=== PATIENT | male | born 1950 | race Caucasian/White ===

== ENCOUNTER → 2020-10-25 13:43 | Outpatient (CLI) | payer MEDICARE, SELFPAY ==
[2020-10-25] MEDS: COVID-19 VACC #1, MRNA(MOD) 100 MCG/0.5 ML VIAL IM (13:48)
== END ==
PROVIDERS: PCP Internal Medicine; Visit Provider Internal Medicine
DX: Z23 Encounter for immunization (principal)
CPT/HCPCS: 0011A; 91301

== ENCOUNTER → 2020-11-22 08:50 | Outpatient (CLI) | payer MEDICARE, SELFPAY ==
[2020-11-22] MEDS: COVID-19 VACC #2, MRNA(MOD) 100 MCG/0.5 ML VIAL IM (08:59)
== END ==
PROVIDERS: PCP Internal Medicine; Visit Provider Internal Medicine
DX: Z23 Encounter for immunization (principal)
CPT/HCPCS: 0012A; 91301

== ENCOUNTER 2021-06-21 11:47 | Emergency (ER) | payer MEDICARE, SELFPAY ==
[2021-06-21] VITALS (27 sets, daily range): BP systolic 98–130; BP diastolic 69–98; PULSE 71–164; RESP 12–25; TEMP 36.9; O2SAT 94–99; BMI 25.6
--- NOTE | 2021-06-21 12:01 | DI.RAD.S_ITS ---
PROCEDURE: XR CHEST 1V INDICATIONS: chest pain TECHNIQUE: One view of the chest was acquired. COMPARISON: [facility], CHEST 1 VIEW, 04/14/2017, 10:11. [facility], CHEST 1 VIEW, 06/01/2016, 10:05. [facility], CHEST 2 VIEW, 04/30/2017, 10:31. FINDINGS: Surgical changes and devices: None. Lungs and pleura: Lungs are clear. No pleural effusions or pneumothorax. Mediastinum: The cardiac contours are within normal limits. The aorta demonstrates calcification and tortuosity. Bones and chest wall: No suspicious bony lesions. Age-appropriate bony degenerative changes are seen. Overlying soft tissues appear unremarkable. IMPRESSION: Portable chest study within normal limits for age. Dictated by: Jerad Schwarz M.D. on 06/21/2021 at 11:20 Approved by: Jerad Schwarz M.D. on 06/21/2021 at 11:21
[2021-06-21 12:12] LABS: Add Manual Diff / Slide Review NO; Basophils Absolute Auto 100 /uL (0-100); Basophils Percent Auto 0.8 % (0-2); Eosinophils Absolute Auto 100 /uL (0-450); Eosinophils Percent Auto 0.9 % (2-4); Hemoglobin 14.2 g/dL (13.5-17.5); Lymphocytes Absolute Auto 1200 /uL (1100-4500); Lymphocytes Percent Auto 16.4 % (25-40); Mean Corpuscular HGB Conc 33.9 % (30-36); Mean Corpuscular Hemoglobin 33.1 PG (26-34); Mean Corpuscular Volume 97.7 fL (80-100); Monocytes Absolute Auto 700 /uL (0-900); Monocytes Percent Auto 10.4 % (3-14); Neutrophils Absolute Auto 5100 /uL (1500-7000); Neutrophils Percent Auto 71.5 % (50-75); Platelet Count 230 X10^3/uL (150-400); Red Cell Distribution Width 13.1 % (11.6-14.8); White Blood Cell Count 7.1 X10^3/uL (4.5-11.0)
[2021-06-21 12:14] LABS: Prothrombin Time 10.8 SECONDS (10.1-12.7)
[2021-06-21 12:17] LABS: PTT Partial Thromboplastin Tim 30 SECONDS (26.4-36.2)
[2021-06-21 12:21] LABS: Alanine Aminotransferase 30 IU/L (<50); Albumin 4.1 g/dL (3.5-5.0); Albumin Globulin Ratio 1.6 (1.0-2.8); Alkaline Phosphatase 63 U/L (38-126); Aspartate Aminotransferase 30 IU/L (17-59); BUN Creatinine Ratio 18.8 (6-22); Bilirubin Total 0.7 mg/dL (0.2-1.3); Blood Urea Nitrogen 18 mg/dL (9-20); Calcium 9.4 mg/dL (8.4-10.2); Carbon Dioxide 24 mmol/L (22-32); Chloride 108 mmol/L (98-107); Creatine Kinase 94 U/L (55-170); Estimated Glomerular Filt Rate > 60.0 mL/min (>60); Globulin 2.5 g/dL (1.7-4.1); Glucose 100 mg/dL (80-110); HEMOLYSIS < 15 (0-50); Lipase 132 U/L (23-300); Magnesium 2.2 mg/dL (1.6-2.3); Potassium 4.3 mmol/L (3.4-5.1); Sodium 140 mmol/L (137-145); Total Protein 6.6 g/dL (6.3-8.2)
--- NOTE | 2021-06-21 12:37 | ED.ARRPALP ---
HPI - Arrhythmia/Palpitations General Chief Complaint: Arrhythmia/Palpitations Stated Complaint: afib Time Seen by Provider: 06/21/21 12:06 Source: patient Mode of arrival: Ambulatory Limitations: no limitations History of Present Illness HPI narrative: 70-year-old gentleman with a history of paroxysmal atrial fibrillation currently presents not on anticoagulation beyond aspirin because his paroxysmal atrial fibrillation is typically a couple of years in between episodes. He states that this current episode began 3:00 a.m. early the morning of 06/19. He believes it is because he did not take his usual magnesium for approximately 5 days due to traveling. He has successfully been cardioverted at least 4 times. Currently is feeling a faster rate but no cough, palpitations, chest pain, orthopnea or dyspnea. Related Data Home Medications Medication Instructions Recorded Confirmed aspirin 81 mg tablet,delayed 81 mg PO QDAY #0 04/14/17 release pravastatin 20 mg tablet 20 mg PO Q DAY #0 04/14/17 (Pravachol) Previous Rx's Medication Instructions Recorded rivaroxaban 20 mg tablet (Xarelto) 20 mg PO QDAY 28 Days #0 tab 04/14/17 apixaban 5 mg tablet (Eliquis) 5 mg PO BID #60 tab 06/21/21 Allergies Allergy/AdvReac Type Severity Reaction Status Date / Time ampicillin [AMPICILLIN] Allergy Unknown Verified 06/21/21 12:02 cephalexin [From KEFLEX] Allergy Unknown Verified 06/21/21 12:02 clindamycin [CLINDAMYCIN] Allergy Unknown Verified 06/21/21 12:02 sulfamethoxazole Allergy Unknown Verified 06/21/21 12:02 [From BACTRIM] trimethoprim [From BACTRIM] Allergy Unknown Verified 06/21/21 12:02 Review of Systems Review of Systems Narrative: Remainder of complete review of systems is otherwise unremarkable except for that included in the HPI. Patient History Medical History (Updated 06/21/21 @ 15:14 by Jessica Voss MD) Paroxysmal atrial fibrillation Social History (System 10/26/20 @ 09:08 by Sarahi Torrez) Smoking Status: Unknown if ever smoked Smoking Status: Unknown if ever smoked alcohol intake frequency: holidays/special occasions only Substance Use Type: does not use Exam Narrative Exam Narrative: General: Healthy appearing, in no acute distress. Able to give a complete and coherent history. Well-nourished well-developed HEENT: Moist mucous membranes, normal sclera with reactive pupils, Neck: No JVD, supple Respiratory: Lungs are clear to auscultation, no wheezing no rales no rhonchi. Full and symmetrical air movement Cardiac: Rapid and irregular, no murmurs no bruits Abdomen: Soft, nontender, good bowel tones, no flank pain Skin: Warm and dry, no rashes Neurologic: Grossly neurologically intact with no obvious asymmetries or abnormalities Extremities: No trauma, well perfused, no lower extremity edema Psych: Cooperative, appropriate insight and affect Initial Vital Signs Initial Vital Signs: Vital Signs Pulse Rate 153 H 06/21/21 11:52 Respiratory Rate 25 H 06/21/21 11:52 Pulse Oximetry 99 06/21/21 11:52 Procedures Cardioversion Time of Cardioversion: 15:08 Consent Signed: Yes Indication: Atrial fibrillation with rapid ventricular response Stability: Stable Number of attempts (shocks): 1 Joules used: 100 Cardiac rhythm post-cardioversion: Sinus rhythm Additional Comments: With prior cardioversion notes from a the 100 mg of propofol was used. I believe 80 would be absolutely appropriate with the next cardioversion if required. Procedural Sedation Time of procedure: 15:09 Consent signed: Yes Time out performed: Yes Indication: cardioversion ASA Class: II Time of Last PO Intake: 21:00 Preparation: bias binding folder applied, pulse oximeter, capnometry used, supplemental O2 applied, suction/airway equipment at bedside and IV secured IV Propofol dose (mg): 100 Intraservice time/total sedation time (min): 12 Complications: none Interventions: Airway repositioned Additional Comments: Patient is 6 ft 10 in tall. Prior propofol required was 100 mg. I believe 80 mg in a single bolus would be very appropriate for the next cardioversion if required. Course Orders Ordered: ED Orders 06/21/21 11:55 Complete Blood Count AUTO DIFF Stat Comprehensive Metabolic Panel Stat Lipase Stat Magnesium Stat Partial Thromboplastin Time Stat Prothrombin Time INR Stat Troponin & CK Cardiac Panel Stat 06/21/21 12:01 XR chest 1V Stat EKG-12 Lead Stat 06/21/21 12:19 COVID19 - ADMIT ([employer] swab/PCR) Stat Discontinued Medications Apixaban (Apixaban 5 Mg Tablet) 5 mg PO NOW ONE Stop: 06/21/21 12:46 Last Admin: 06/21/21 13:24 Dose: 5 mg Documented by: JALEESA Propofol (Propofol 200 Mg/20 Ml Vial) 200 mg IV NOW ONE Stop: 06/21/21 12:46 Vital Signs Vital signs: Vital Signs - 8 hr 06/21/21 11:52 06/21/21 11:53 06/21/21 11:55 Temperature 98.4 F Pulse Rate 153 H 164 H 157 H Respiratory Rate 25 H 15 16 Blood Pressure 121/91 H 121/93 H Pulse Oximetry 99 98 99 06/21/21 12:00 06/21/21 12:30 06/21/21 13:00 Temperature Pulse Rate 162 H 155 H 155 H Respiratory Rate 14 23 21 Blood Pressure 130/94 H Pulse Oximetry 99 96 95 06/21/21 13:30 06/21/21 13:31 06/21/21 13:35 Temperature Pulse Rate 152 H 153 H 150 H Respiratory Rate Blood Pressure 103/78 111/85 Pulse Oximetry 98 99 99 06/21/21 13:40 06/21/21 13:45 06/21/21 13:51 Temperature Pulse Rate 152 H 151 H 146 H Respiratory Rate Blood Pressure 119/76 108/69 126/98 H Pulse Oximetry 99 97 98 06/21/21 13:55 06/21/21 14:00 06/21/21 14:05 Temperature Pulse Rate 152 H 154 H 155 H Respiratory Rate Blood Pressure 108/86 117/69 Pulse Oximetry 98 99 98 06/21/21 14:13 06/21/21 14:15 06/21/21 14:20 Temperature Pulse Rate 155 H 156 H 153 H Respiratory Rate Blood Pressure 108/78 98/72 101/82 Pulse Oximetry 99 99 99 06/21/21 14:25 06/21/21 14:30 06/21/21 14:40 Temperature Pulse Rate 153 H 154 H 158 H Respiratory Rate 22 Blood Pressure 104/84 110/82 Pulse Oximetry 98 95 98 06/21/21 14:55 06/21/21 15:00 Temperature Pulse Rate 73 73 Respiratory Rate 18 17 Blood Pressure 112/71 108/76 Pulse Oximetry 94 97 MDM - Arrhythmia/Palpitations Lab Data Result diagrams: 06/21/21 11:55 06/21/21 11:55 Labs: Lab Results 06/21/21 06/21/21 06/21/21 Range/Units 11:55 11:55 11:55 WBC 7.1 (4.5-11.0) X10^3/uL RBC 4.30 L (4.5-5.9) X10^6/uL Hgb 14.2 (13.5-17.5) g/dL Hct 42.0 (41-53) % MCV 97.7 (80-100) fL MCH 33.1 (26-34) PG MCHC 33.9 (30-36) % RDW 13.1 (11.6-14.8) % Plt Count 230 (150-400) X10^3/uL Neut % (Auto) 71.5 (50-75) % Lymph % (Auto) 16.4 L (25-40) % [place] % (Auto) 10.4 (3-14) % Eos % (Auto) 0.9 L (2-4) % Baso % (Auto) 0.8 (0-2) % Neut # (Auto) 5100 (5453-7622) /uL Lymph # (Auto) 1200 (4053-5511) /uL [place] # (Auto) 700 (0-900) /uL Eos # (Auto) 100 (0-450) /uL Baso # (Auto) 100 (0-100) /uL PT 10.8 (10.1-12.7) SECONDS INR 1.0 (0.9-1.3) APTT 30 (26.4-36.2) SECONDS Sodium 140 (137-145) mmol/L Potassium 4.3 (3.4-5.1) mmol/L Chloride 108 H (98-107) mmol/L Carbon Dioxide 24 (22-32) mmol/L BUN 18 (9-20) mg/dL Creatinine 0.96 (0.66-1.25) mg/dL Estimated GFR > 60.0 (>60) mL/min BUN/Creatinine Ratio 18.8 (6-22) Glucose 100 (80-110) mg/dL Calcium 9.4 (8.4-10.2) mg/dL Magnesium 2.2 (1.6-2.3) mg/dL Total Bilirubin 0.7 (0.2-1.3) mg/dL AST 30 (17-59) IU/L ALT 30 (<50) IU/L Alkaline Phosphatase 63 (38-126) U/L Total Creatine Kinase 94 (55-170) U/L CK-MB (CK-2) TNP CK-MB (CK-2) Rel Index TNP Troponin I < 0.012 (0.01-0.034) ng/mL Total Protein 6.6 (6.3-8.2) g/dL Albumin 4.1 (3.5-5.0) g/dL Globulin 2.5 (1.7-4.1) g/dL Albumin/Globulin Ratio 1.6 (1.0-2.8) Lipase 132 (23-300) U/L SARS-CoV-2 (PCR) (Negative) 06/21/21 Range/Units 12:19 WBC (4.5-11.0) X10^3/uL RBC (4.5-5.9) X10^6/uL Hgb (13.5-17.5) g/dL Hct (41-53) % MCV (80-100) fL MCH (26-34) PG MCHC (30-36) % RDW (11.6-14.8) % Plt Count (150-400) X10^3/uL Neut % (Auto) (50-75) % Lymph % (Auto) (25-40) % [place] % (Auto) (3-14) % Eos % (Auto) (2-4) % Baso % (Auto) (0-2) % Neut # (Auto) (2738-2125) /uL Lymph # (Auto) (4317-7435) /uL [place] # (Auto) (0-900) /uL Eos # (Auto) (0-450) /uL Baso # (Auto) (0-100) /uL PT (10.1-12.7) SECONDS INR (0.9-1.3) APTT (26.4-36.2) SECONDS Sodium (137-145) mmol/L Potassium (3.4-5.1) mmol/L Chloride (98-107) mmol/L Carbon Dioxide (22-32) mmol/L BUN (9-20) mg/dL Creatinine (0.66-1.25) mg/dL Estimated GFR (>60) mL/min BUN/Creatinine Ratio (6-22) Glucose (80-110) mg/dL Calcium (8.4-10.2) mg/dL Magnesium (1.6-2.3) mg/dL Total Bilirubin (0.2-1.3) mg/dL AST (17-59) IU/L ALT (<50) IU/L Alkaline Phosphatase (38-126) U/L Total Creatine Kinase (55-170) U/L CK-MB (CK-2) CK-MB (CK-2) Rel Index Troponin I (0.01-0.034) ng/mL Total Protein (6.3-8.2) g/dL Albumin (3.5-5.0) g/dL Globulin (1.7-4.1) g/dL Albumin/Globulin Ratio (1.0-2.8) Lipase (23-300) U/L SARS-CoV-2 (PCR) Negative (Negative) Imaging Data Chest x-ray: Radiologist's Impresson: FINDINGS: Surgical changes and devices: None. Lungs and pleura: Lungs are clear. No pleural effusions or pneumothorax. Mediastinum: The cardiac contours are within normal limits. The aorta demonstrates calcification and tortuosity. Bones and chest wall: No suspicious bony lesions. Age-appropriate bony degenerative changes are seen. Overlying soft tissues appear unremarkable. IMPRESSION: Portable chest study within normal limits for age. Dictated by: Jerad Schwarz M.D. on 06/21/2021 at 11:20 ECG Data Interpretation: Atrial fibrillation at a rate of [address] T wave abnormality MDM Narrative Medical decision making narrative: 60-year-old gentleman currently on aspirin with paroxysmal atrial fibrillation last episode in 2019. Presents with 36 hours of atrial fibrillation in the 150 range. Otherwise asymptomatic. There is no evidence of infection, acute coronary syndrome, pulmonary embolism, aortic dissection or alternate diagnosis to explain his acute onset paroxysmal atrial fibrillation. He is given 5 mg of Eliquis. Informed consent is obtained. Labs are reviewed and are unremarkable. He is shocked with 100 joules, synchronized electricity and converts nicely to sinus rhythm. After awaking from his sedation he is doing well and ready for discharge home He is in sinus rhythm at a rate of 68. Will give him a prescription for Eliquis 5 mg b.i.d. and asked him to follow-up with his aerotriangulation specialist at [facility]. Discharge Plan Departure Patient Disposition: Home Clinical Impression: Atrial fibrillation with rapid ventricular response Instructions: DI for Atrial Fibrillation, Moderate Sedation Activity Restrictions/Additional Instructions: Thank you for coming in today in thank you for tolerating the long wait. You were given propofol and cardioverted with 100 joules of electricity and converted from atrial fibrillation with rapid ventricular response to sinus rhythm at a rate of 68. Your post cardioversion EKG is beautiful. I gave you a dose of Eliquis prior to the procedure and I am going to request that you feel the Eliquis prescription. Typically we have people continue for at least 3 months post cardioversion. Please schedule follow-up appointment with her aerotriangulation specialist to discuss the timing of the Eliquis and the recurrent episode of atrial fibrillation. If you have any further episodes please feel free to return to the ER. 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 It was a pleasure treating you today Prescriptions: New Eliquis 5 mg tablet 5 mg PO BID Qty: 60 RF: 3 No Action aspirin 81 MG tablet,delayed release (DR/EC) 81 mg PO QDAY Qty: 0 RF: 0 pravastatin [Pravachol] 20 MG tablet 20 mg PO Q DAY Qty: 0 RF: 0 rivaroxaban [Xarelto] 20 MG tablet 20 mg PO QDAY 28 Days Qty: 0 RF: 0 Referrals: Santino Mariee MD [Primary Care Provider] -
[2021-06-21 13:23] LABS: COVID19 - ADMIT (NP swab/PCR) Negative (Negative)
[2021-06-21] MEDS: APIXABAN 5 MG TABLET PO (13:24)
[2021-06-21 13:51] LABS: Troponin I < 0.012 ng/mL (0.01-0.034)
[2021-06-21] MEDS: propofoL 200 MG/20 ML VIAL IV (14:50)
== END 2021-06-21 15:35 | disposition home or self-care (01) ==
PROVIDERS: Emergency Provider Emergency Medicine; PCP Internal Medicine
DX: I48.20 Chronic atrial fibrillation, unspecified (principal); Z79.01 Long term (current) use of anticoagulants; Z20.822 Contact with and (suspected) exposure to COVID-19
CPT/HCPCS: 36415; 71045; 80053; 82550; 83690; 83735; 84484; 85025; 85610; 85730; 87635; 92960; 93005; 93010; 99152; 99285; C9803; J2704

== ENCOUNTER → 2022-03-25 11:48 | Outpatient (CLI) | payer MEDICARE, SELFPAY ==
[2022-03-25 12:58] LABS: Hemoglobin 13.3 g/dL (13.5-17.5); Mean Corpuscular Hemoglobin 33.5 PG (26-34); Mean Corpuscular Volume 95.7 fL (80-100); Platelet Count 205 X10^3/uL (150-400); Red Blood Cell Count 3.97 X10^6/uL (4.5-5.9); Red Cell Distribution Width 13.6 % (11.6-14.8); White Blood Cell Count 3.8 X10^3/uL (4.5-11.0)
[2022-03-25 13:31] LABS: Alanine Aminotransferase 28 IU/L (<50); Albumin 4.2 g/dL (3.5-5.0); Albumin Globulin Ratio 1.9 (1.0-2.8); Alkaline Phosphatase 51 U/L (38-126); Aspartate Aminotransferase 34 IU/L (17-59); BUN Creatinine Ratio 23.1 (6-22); Bilirubin Total 0.6 mg/dL (0.2-1.3); Blood Urea Nitrogen 21 mg/dL (9-20); Calcium 8.7 mg/dL (8.4-10.2); Carbon Dioxide 23 mmol/L (22-32); Chloride 110 mmol/L (98-107); Cholesterol 175 mg/dL (140-199); Estimated Glomerular Filt Rate > 60 mL/min (>60); Globulin 2.2 g/dL (1.7-4.1); Glucose 104 mg/dL (80-110); HDL Cholesterol 61 mg/dL (40-60); HEMOLYSIS < 15 (0-50); LDL Cholesterol Calculated 98 mg/dL (<100); Potassium 4.2 mmol/L (3.4-5.1); Sodium 140 mmol/L (137-145); Total Protein 6.4 g/dL (6.3-8.2); Triglycerides 78 mg/dL (35-150)
[2022-03-25 13:54] LABS: Prostate Specific Antigen 1.56 ng/mL (0.10-4.00)
[2022-03-25 14:13] LABS: Vitamin B12 707 pg/mL (239-931)
== END ==
PROVIDERS: PCP Internal Medicine; Referring Provider Internal Medicine; Visit Provider Internal Medicine
DX: E78.2 Mixed hyperlipidemia (principal); N13.8 Other obstructive and reflux uropathy; I10 Essential (primary) hypertension; I48.0 Paroxysmal atrial fibrillation; N40.1 Benign prostatic hyperplasia with lower urinary tract symptoms; E53.8 Deficiency of other specified B group vitamins
CPT/HCPCS: 36415; 80053; 80061; 82607; 84153; 84443; 85027

== ENCOUNTER → 2022-10-11 09:45 | Outpatient (CLI) | payer MEDICARE, SELFPAY ==
[2022-10-11 10:15] LABS: Add Manual Diff / Slide Review NO; Basophils Absolute Auto 0 /uL (0-100); Eosinophils Absolute Auto 100 /uL (0-450); Eosinophils Percent Auto 3.8 % (2-4); Hematocrit 39.2 % (41-53); Hemoglobin 13.8 g/dL (13.5-17.5); Lymphocytes Absolute Auto 800 /uL (1100-4500); Mean Corpuscular HGB Conc 35.3 % (30-36); Mean Corpuscular Hemoglobin 34.4 PG (26-34); Mean Corpuscular Volume 97.4 fL (80-100); Monocytes Absolute Auto 500 /uL (0-900); Monocytes Percent Auto 12.8 % (3-14); Neutrophils Absolute Auto 2400 /uL (1500-7000); Neutrophils Percent Auto 62.4 % (50-75); Platelet Count 190 X10^3/uL (150-400); Red Blood Cell Count 4.02 X10^6/uL (4.5-5.9); Red Cell Distribution Width 13.3 % (11.6-14.8); White Blood Cell Count 3.9 X10^3/uL (4.5-11.0)
[2022-10-11 10:34] LABS: HEMOLYSIS < 15 (0-50); Iron 184 ug/dL (49-181)
[2022-10-11 10:46] LABS: Percent Iron Saturation 47 % (20-50); Total Iron Binding Capacity 392 ug/dL (261-462); Transferrin 292 mg/dL (206-381)
[2022-10-11 10:57] LABS: Cholesterol 162 mg/dL (140-199); HDL Cholesterol 66 mg/dL (40-60); LDL Cholesterol Calculated 84 mg/dL (<100); Triglycerides 59 mg/dL (35-150)
[2022-10-11 11:24] LABS: Ferritin 21 ng/mL (18-464)
== END ==
PROVIDERS: PCP Internal Medicine; Referring Provider Internal Medicine; Visit Provider Internal Medicine
DX: D64.9 Anemia, unspecified (principal)
CPT/HCPCS: 36415; 80061; 82728; 83540; 83550; 85025

== ENCOUNTER → 2022-10-24 13:29 | Outpatient (CLI) | payer MEDICARE, SELFPAY ==
[2022-10-24 14:27] LABS: BUN Creatinine Ratio 23.3 (6-22); Blood Urea Nitrogen 21 mg/dL (9-20); Calcium 9.1 mg/dL (8.4-10.2); Carbon Dioxide 28 mmol/L (22-32); Chloride 106 mmol/L (98-107); Estimated Glomerular Filt Rate > 60 mL/min (>60); Glucose 72 mg/dL (80-110); HEMOLYSIS < 15 (0-50); Potassium 4.8 mmol/L (3.4-5.1); Sodium 140 mmol/L (137-145)
== END ==
PROVIDERS: PCP Internal Medicine; Referring Provider Internal Medicine; Visit Provider Internal Medicine
DX: R79.89 Other specified abnormal findings of blood chemistry (principal)
CPT/HCPCS: 36415; 80048

== ENCOUNTER → 2023-01-22 08:42 | Outpatient (CLI) | payer MEDICARE, SELFPAY ==
[2023-01-22 09:38] LABS: Hematocrit 41.1 % (41-53); Hemoglobin 14.3 g/dL (13.5-17.5); Mean Corpuscular HGB Conc 34.8 % (30-36); Mean Corpuscular Hemoglobin 33.8 PG (26-34); Platelet Count 197 X10^3/uL (150-400); Red Blood Cell Count 4.23 X10^6/uL (4.5-5.9); Red Cell Distribution Width 13.1 % (11.6-14.8); White Blood Cell Count 4.2 X10^3/uL (4.5-11.0)
[2023-01-22 10:00] LABS: HEMOLYSIS < 15 (0-50); Iron 124 ug/dL (49-181)
[2023-01-22 10:04] LABS: Blood Urea Nitrogen 24 mg/dL (9-20); Calcium 9.3 mg/dL (8.4-10.2); Carbon Dioxide 28 mmol/L (22-32); Chloride 105 mmol/L (98-107); Estimated Glomerular Filt Rate > 60 mL/min (>60); Glucose 97 mg/dL (80-110); HEMOLYSIS < 15 (0-50); Potassium 4.4 mmol/L (3.4-5.1); Sodium 138 mmol/L (137-145)
[2023-01-22 10:15] LABS: Percent Iron Saturation 30 % (20-50); Total Iron Binding Capacity 412 ug/dL (261-462); Transferrin 297 mg/dL (206-381)
[2023-01-22 10:37] LABS: Ferritin 20 ng/mL (18-464)
== END ==
PROVIDERS: PCP Internal Medicine; Referring Provider Internal Medicine; Visit Provider Internal Medicine
DX: D64.9 Anemia, unspecified (principal); I48.0 Paroxysmal atrial fibrillation
CPT/HCPCS: 36415; 80048; 82728; 83540; 83550; 85027

== ENCOUNTER → 2024-07-29 16:07 | Outpatient (CLI) | payer MEDICARE, SELFPAY ==
[2024-07-29 16:57] LABS: Hematocrit 36.2 % (41-53); Hemoglobin 12.3 g/dL (13.5-17.5); Mean Corpuscular HGB Conc 33.9 % (30-36); Mean Corpuscular Hemoglobin 32.1 PG (26-34); Mean Corpuscular Volume 94.8 fL (80-100); Platelet Count 152 X10^3/uL (150-400); Red Blood Cell Count 3.82 X10^6/uL (4.5-5.9); Red Cell Distribution Width 14.2 % (11.6-14.8); White Blood Cell Count 4.6 X10^3/uL (4.5-11.0)
[2024-07-29 17:11] LABS: Alanine Aminotransferase 27 IU/L (<50); Albumin 4.2 g/dL (3.5-5.0); Albumin Globulin Ratio 1.8 (1.0-2.8); Alkaline Phosphatase 54 U/L (38-126); Aspartate Aminotransferase 33 IU/L (17-59); BUN Creatinine Ratio 22.3 (6-22); Bilirubin Total 0.4 mg/dL (0.2-1.3); Blood Urea Nitrogen 21 mg/dL (9-20); Calcium 9.2 mg/dL (8.4-10.2); Carbon Dioxide 27 mmol/L (22-32); Chloride 108 mmol/L (98-107); Cholesterol 190 mg/dL (140-199); Estimated Glomerular Filt Rate > 60 mL/min (>60); Globulin 2.3 g/dL (1.7-4.1); Glucose 97 mg/dL (80-110); HDL Cholesterol 59 mg/dL (40-60); HEMOLYSIS < 15 (0-50); LDL Cholesterol Calculated 111 mg/dL (<100); Potassium 4.1 mmol/L (3.4-5.1); Sodium 139 mmol/L (137-145); Total Protein 6.5 g/dL (6.3-8.2); Triglycerides 98 mg/dL (35-150)
[2024-07-29 17:41] LABS: Prostate Specific Antigen 1.71 ng/mL (0.10-4.00)
[2024-07-29 18:00] LABS: Vitamin B12 672 pg/mL (239-931)
== END ==
PROVIDERS: PCP Internal Medicine; Referring Provider Internal Medicine; Visit Provider Internal Medicine
DX: I48.0 Paroxysmal atrial fibrillation (principal); E78.2 Mixed hyperlipidemia; N40.1 Benign prostatic hyperplasia with lower urinary tract symptoms; N13.8 Other obstructive and reflux uropathy; E53.8 Deficiency of other specified B group vitamins; D68.59 Other primary thrombophilia; G62.9 Polyneuropathy, unspecified; M15.9 Polyosteoarthritis, unspecified; Z80.42 Family history of malignant neoplasm of prostate; R13.12 Dysphagia, oropharyngeal phase; Z86.0100 Personal history of colon polyps, unspecified
CPT/HCPCS: 36415; 80053; 80061; 82607; 84153; 85027

== ENCOUNTER 2024-09-03 10:45 | Day surgery (SDC) | payer MEDICARE, SELFPAY ==
[2024-09-03 11:30] VITALS: BP 115/71; PULSE 69; RESP 12; TEMP 36.6; O2SAT 95
--- NOTE | 2024-09-03 12:40 | PM.PREOP ---
Pre-operative Note Interval Note History & Physical reviewed/Exam performed by Physician: Yes Changes to H&P: No
--- NOTE | 2024-09-03 12:41 | PM.OP.EC ---
Operative Date/Time/Diagnoses Date of procedure: 09/03/24 Time of procedure: 12:41 Pre-op diagnosis: Esophageal dysphagia History of colonic polyps Procedure & Clinicians Study performed: Esophagogastroduodenoscopy and colonoscopy Same procedure as scheduled: Yes Indications: Personal history of colonic polyps Esophageal dysphagia Surgeon: Chito Lipscomb Procedure Notes Procedure in detail: The history and physical was performed/updated and the patient is ASA class is 2. The procedure was discussed in detail with the patient. Potential risks complications including infection, bleeding, missed diagnosis, perforation, need for surgery, and were explained. Their questions were answered and informed consent was obtained. Patient placed in left lateral decubitus position. Time out was performed. Procedural sedation was administered by Anesthesia. A bite block was placed. the scope was inserted into the mouth and advanced through the esophagus and into the stomach. the pylorus was intubated and the duodenum was examined to the 2nd portion.. The scope was retroflexed within the stomach. The stomach was then decompressed and scope pulled back to the GE junction. The scope was then removed Examination began with a thorough inspection of the perianal area there was no evidence of fissures, fistulae, external hemorrhoids or cutaneous malignancy. The colonoscopy scope was then placed into the anal canal and was advanced to the cecum, which was identified by the ileocecal valve, the appendiceal orifice and the confluence of the taenia. The scope was then slowly withdrawn examining colon thoroughly in all directions, irrigating it of any residual stool. FINDINGS Distal esophageal stricture. Balloon Dilated to 20 mm under direct visualization No colonic polyps The patient tolerated the procedure well. They will be discharged once criteria are met. The prep was of good/excellent quality. The withdrawl time was 9 minutes. Specimen(s): none sent Impression: Esophageal stricture Post-procedure Plan for aftercare: No need for further colonoscopy Disposition: same day surgery
[2024-09-03 13:18] VITALS: BP 98/66; PULSE 61; RESP 15; TEMP 36.2; O2SAT 91
[2024-09-03 13:23] VITALS: BP 102/66; PULSE 55; RESP 13; O2SAT 95
[2024-09-03 13:28] VITALS: BP 103/77; PULSE 66; RESP 14; TEMP 36.1; O2SAT 96
[2024-09-03 13:32] VITALS: BP 116/79; PULSE 59; RESP 15; TEMP 36.6; O2SAT 98
== END 2024-09-03 14:02 | disposition home or self-care (01) ==
PROVIDERS: PCP Internal Medicine; Referring Provider Surgery; Visit Provider Surgery
PROC: 0DJ08ZZ Inspection of Upper Intestinal Tract, Via Natural or Artificial Opening Endoscopic (ICD-10-PCS; CPT 43235; principal; 2024-09-03 12:30)
PROC: 0DJD8ZZ Inspection of Lower Intestinal Tract, Via Natural or Artificial Opening Endoscopic (ICD-10-PCS; CPT 45378; 2024-09-03 12:30)
DX: Z12.11 Encounter for screening for malignant neoplasm of colon (principal); Z86.0100 Personal history of colon polyps, unspecified; R13.10 Dysphagia, unspecified; K22.2 Esophageal obstruction
CPT/HCPCS: 43249; G0105; J2704

== ENCOUNTER → 2024-09-14 09:23 | Outpatient (CLI) | payer MEDICARE, SELFPAY ==
[2024-09-14 10:17] LABS: Add Manual Diff / Slide Review NO; Basophils Absolute Auto 0 /uL (0-100); Eosinophils Absolute Auto 100 /uL (0-450); Eosinophils Percent Auto 2.9 % (2-4); Hematocrit 36.5 % (41-53); Hemoglobin 12.4 g/dL (13.5-17.5); Lymphocytes Absolute Auto 800 /uL (1100-4500); Lymphocytes Percent Auto 20.7 % (25-40); Mean Corpuscular HGB Conc 33.8 % (30-36); Mean Corpuscular Hemoglobin 31.9 PG (26-34); Mean Corpuscular Volume 94.4 fL (80-100); Monocytes Absolute Auto 500 /uL (0-900); Monocytes Percent Auto 12.9 % (3-14); Neutrophils Absolute Auto 2300 /uL (1500-7000); Neutrophils Percent Auto 62.5 % (50-75); Platelet Count 216 X10^3/uL (150-400); Red Blood Cell Count 3.87 X10^6/uL (4.5-5.9); Red Cell Distribution Width 14.3 % (11.6-14.8); White Blood Cell Count 3.6 X10^3/uL (4.5-11.0)
[2024-09-14 10:32] LABS: HEMOLYSIS < 15 (0-50); Iron 77 ug/dL (49-181)
[2024-09-14 10:42] LABS: Percent Iron Saturation 21 % (20-50); Total Iron Binding Capacity 359 ug/dL (261-462); Transferrin 309 mg/dL (206-381)
[2024-09-14 11:08] LABS: Ferritin 20 ng/mL (18-464)
== END ==
PROVIDERS: PCP Internal Medicine; Referring Provider Internal Medicine; Visit Provider Internal Medicine
DX: D64.9 Anemia, unspecified (principal)
CPT/HCPCS: 36415; 82728; 83540; 83550; 85025

== ENCOUNTER 2025-01-04 11:29 | Emergency (ER) | payer MEDICARE, SELFPAY ==
[2025-01-04] VITALS (8 sets, daily range): BP systolic 114–122; BP diastolic 73–79; PULSE 46–109; RESP 11–27; TEMP 36.6; O2SAT 95–99; BMI 24.0
--- NOTE | 2025-01-04 11:44 | DI.RAD.S_ITS ---
PROCEDURE: XR CHEST 1V INDICATIONS: chest pain TECHNIQUE: One view of the chest was acquired. COMPARISON: [facility], CR, XR CHEST 1V, 06/21/2021, 12:03. FINDINGS: Surgical changes and devices: None. Lungs and pleura: Lungs are clear. No pleural effusions or pneumothorax. Mediastinum: Mediastinal contours appear normal. Heart size is normal. Moderate hiatal hernia, not visible on the previous study. Bones and chest wall: No suspicious bony lesions. Overlying soft tissues appear unremarkable. IMPRESSION: Moderate hiatal hernia. No acute pulmonary process. Dictated by: Cory Martinez M.D. on 01/04/2025 at 12:40 Approved by: Cory Martinez M.D. on 01/04/2025 at 12:40
--- NOTE | 2025-01-04 11:48 | EKG_ITS ---
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
[2025-01-04 12:11] LABS: Add Manual Diff / Slide Review NO; Basophils Absolute Auto 100 /uL (0-100); Eosinophils Absolute Auto 100 /uL (0-450); Eosinophils Percent Auto 1.1 % (2-4); Hemoglobin 14.1 g/dL (13.5-17.5); Lymphocytes Absolute Auto 800 /uL (1100-4500); Lymphocytes Percent Auto 14.2 % (25-40); Mean Corpuscular HGB Conc 34.3 % (30-36); Mean Corpuscular Hemoglobin 33.7 PG (26-34); Monocytes Absolute Auto 500 /uL (0-900); Monocytes Percent Auto 8.8 % (3-14); Neutrophils Absolute Auto 4000 /uL (1500-7000); Neutrophils Percent Auto 74.9 % (50-75); Platelet Count 209 X10^3/uL (150-400); Red Blood Cell Count 4.19 X10^6/uL (4.5-5.9); Red Cell Distribution Width 13.4 % (11.6-14.8); White Blood Cell Count 5.4 X10^3/uL (4.5-11.0)
[2025-01-04 12:16] LABS: INR 1.1 (0.9-1.3); Prothrombin Time 12.2 SECONDS (9.4-12.5)
[2025-01-04 12:19] LABS: PTT Partial Thromboplastin Tim 34 SECONDS (25.1-36.5)
[2025-01-04 12:20] LABS: Alanine Aminotransferase 28 IU/L (<50); Albumin 4.3 g/dL (3.5-5.0); Alkaline Phosphatase 58 U/L (38-126); Aspartate Aminotransferase 33 IU/L (17-59); Bilirubin Total 0.9 mg/dL (0.2-1.3); Blood Urea Nitrogen 22 mg/dL (9-20); Calcium 9.4 mg/dL (8.4-10.2); Carbon Dioxide 19 mmol/L (22-32); Chloride 110 mmol/L (98-107); Creatine Kinase 89 U/L (55-170); Estimated Glomerular Filt Rate > 60 mL/min (>60); Globulin 2.2 g/dL (1.7-4.1); Glucose 100 mg/dL (80-110); HEMOLYSIS < 15 (0-50); Lipase 112 U/L (23-300); Magnesium 2.1 mg/dL (1.6-2.3); Potassium 4.1 mmol/L (3.4-5.1); Sodium 138 mmol/L (137-145); Total Protein 6.5 g/dL (6.3-8.2)
[2025-01-04 12:32] LABS: NT-proBNP (BNP-Adult 18+) 1670 pg/mL (<125); Troponin I < 0.012 ng/mL (0.01-0.034)
--- NOTE | 2025-01-04 12:32 | ED.ARRPALP ---
HPI - Arrhythmia/Palpitations General Chief Complaint: Arrhythmia/Palpitations Stated Complaint: SOB , Light headed ,Low blood pressure Time Seen by Provider: 01/04/25 12:32 History of Present Illness HPI narrative: 74-year-old male with history of atrial fibrillation first diagnosed 15 years ago, in the past had been on Xarelto anticoagulation, had cardiac ablation procedure at [facility] May 2023, eventually stopped taking Xarelto, was felt to be out of atrial fibrillation, 3 months ago his apple watch indicated that he might have been in atrial fibrillation briefly but was not symptomatic at that time, not taking anticoagulation, for the last 4 days his Apple watch has indicated that he has been in atrial fibrillation, he restarted Xarelto oral anticoagulation 4 days ago from an old supply of his, today felt like he had atrial fibrillation with faster heart rate sensation, and some generalized weakness. He presented to his primary care provider, in clinic was found to have low blood pressure in context of AFib with fast ventricular response rate, referred for further evaluation. He currently feels better. Has been on metoprolol in the past. Related Data Previous Rx's Medication Instructions Recorded rivaroxaban 20 mg tablet (Xarelto) 20 mg PO DAILY #90 tabs 07/29/24 rosuvastatin 10 mg tablet 10 mg PO DAILY #90 tabs 07/29/24 Allergies Allergy/AdvReac Type Severity Reaction Status Date / Time ampicillin [AMPICILLIN] Allergy Unknown Verified 01/04/25 10:50 cephalexin [From KEFLEX] Allergy Unknown Verified 01/04/25 10:50 clindamycin [CLINDAMYCIN] Allergy Unknown Verified 01/04/25 10:50 sulfamethoxazole Allergy Unknown Verified 01/04/25 10:50 [From BACTRIM] trimethoprim [From BACTRIM] Allergy Unknown Verified 01/04/25 10:50 Patient History Medical History Anemia Bilateral bunions BPH w urinary obs/LUTS Dysphagia Family history of colon cancer Family history of prostate cancer History of colonic polyps Mixed hyperlipidemia Paroxysmal atrial fibrillation Polyneuropathy, unspecified Primary osteoarthritis involving multiple joints Thrombophilia Surgical History Anesthesia History of hernia surgery S/P cervical spinal fusion Family History Father Colon cancer Prostate cancer Mother Cancer Brother Prostate cancer Social History marital status: details: (Lina), no kids, retired household members: spouse lives independently: Yes occupational status: previously employed Smoking Status: Never smoker alcohol intake: current substance use type: does not use Smoking Status: Never smoker alcohol intake frequency: holidays/special occasions only Exam Narrative Exam Narrative: GENERAL: Well-developed patient, in mild distress. HEAD: Atraumatic. Normocephalic. EYES: Pupils equal round and reactive. Extraocular motions intact. No scleral icterus. No injection or drainage. ENT: Nose without bleeding, purulent drainage. Throat without erythema, tonsillar hypertrophy or exudate. Airway patent. NECK: Trachea midline. Non tender CARDIOVASCULAR: Fast rate with irregularly irregular rhythm, without murmurs, gallops, or rubs. RESPIRATORY: Clear to auscultation. Breath sounds equal bilaterally. No wheezes, rales, or rhonchi. GASTROINTESTINAL: Abdomen soft, non-tender, nondistended. EXTREMITIES: No edema or joint tenderness. BACK: Nontender without deformity or crepitance. No flank tenderness. NEURO: AOx3. Motor functions grossly nonfocal SKIN: No rash or erythema of visible areas Initial Vital Signs Initial Vital Signs: Vital Signs Temperature 97.8 F 01/04/25 11:39 Pulse Rate 46 L 01/04/25 11:39 Respiratory Rate 18 01/04/25 11:39 Blood Pressure 122/73 01/04/25 11:39 Pulse Oximetry 98 01/04/25 11:39 Oxygen Delivery Method Room Air 01/04/25 11:39 Course Orders Ordered: Discontinued Medications Aspirin (Aspirin 81 Mg Chew Tab) 324 mg PO NOW ONE Stop: 01/04/25 11:44 Last Admin: 01/04/25 13:38 Dose: Not Given Documented By: Metoprolol Succinate (Metoprolol Er 25 Mg Tablet) 25 mg PO NOW ONE Stop: 01/04/25 12:37 Last Admin: 01/04/25 13:25 Dose: Not Given Documented By: MARK Vital Signs Vital signs: Vital Signs - 8 hr 01/04/25 11:39 Temperature 97.8 F Pulse Rate 46 L Respiratory Rate 18 Blood Pressure 122/73 Pulse Oximetry 98 Oxygen Delivery Method Room Air MDM - Arrhythmia/Palpitations Lab Data Lab results narrative: White blood cell count 5400, hemoglobin 14.1, platelets 209,000. Glucose 100. BUN 22 with creatinine 1.0 normal renal function. Electrolytes unremarkable. Serum CO2 19. Normal liver functions. Normal lipase. Troponin negative. 01/04/25 11:59 01/04/25 11:59 Labs: Lab Results 01/04/25 Range/Units 11:59 WBC 5.4 (4.5-11.0) X10^3/uL RBC 4.19 L (4.5-5.9) X10^6/uL Hgb 14.1 (13.5-17.5) g/dL Hct 41.0 (41-53) % MCV 98.0 (80-100) fL MCH 33.7 (26-34) PG MCHC 34.3 (30-36) % RDW 13.4 (11.6-14.8) % Plt Count 209 (150-400) X10^3/uL Neut % (Auto) 74.9 (50-75) % Lymph % (Auto) 14.2 L (25-40) % [place] % (Auto) 8.8 (3-14) % Eos % (Auto) 1.1 L (2-4) % Baso % (Auto) 1.0 (0-2) % Neut # (Auto) 4000 (2204-6137) /uL Lymph # (Auto) 800 L (0173-4617) /uL [place] # (Auto) 500 (0-900) /uL Eos # (Auto) 100 (0-450) /uL Baso # (Auto) 100 (0-100) /uL PT 12.2 (9.4-12.5) SECONDS INR 1.1 (0.9-1.3) APTT 34 (25.1-36.5) SECONDS Sodium 138 (137-145) mmol/L Potassium 4.1 (3.4-5.1) mmol/L Chloride 110 H (98-107) mmol/L Carbon Dioxide 19 L (22-32) mmol/L BUN 22 H (9-20) mg/dL Creatinine 1.00 (0.66-1.25) mg/dL Estimated GFR > 60 (>60) mL/min BUN/Creatinine Ratio 22.0 (6-22) Glucose 100 (80-110) mg/dL Calcium 9.4 (8.4-10.2) mg/dL Magnesium 2.1 (1.6-2.3) mg/dL Total Bilirubin 0.9 (0.2-1.3) mg/dL AST 33 (17-59) IU/L ALT 28 (<50) IU/L Alkaline Phosphatase 58 (38-126) U/L Total Creatine Kinase 89 (55-170) U/L Troponin I < 0.012 (0.01-0.034) ng/mL NT-Pro-B Natriuret Pep 1670 H (<125) pg/mL Total Protein 6.5 (6.3-8.2) g/dL Albumin 4.3 (3.5-5.0) g/dL Globulin 2.2 (1.7-4.1) g/dL Albumin/Globulin Ratio 2.0 (1.0-2.8) Lipase 112 (23-300) U/L Imaging Data Chest x-ray: Radiologist's Impresson: [place] [address] XRay Report Signed Patient: Jeovany Vargas MR#: [id number] : 1950 Acct:[id number] Age/Sex: 74 / M Date of Service: 01/04/25 Loc: Accession Number: [id number] Procedure: XR chest 1V Ordering Provider: Matt Benitez MD PROCEDURE: XR CHEST 1V INDICATIONS: chest pain TECHNIQUE: One view of the chest was acquired. COMPARISON: [facility], , XR CHEST 1V, 06/21/2021, 12:03. FINDINGS: Surgical changes and devices: None. Lungs and pleura: Lungs are clear. No pleural effusions or pneumothorax. Mediastinum: Mediastinal contours appear normal. Heart size is normal. Moderate hiatal hernia, not visible on the previous study. Bones and chest wall: No suspicious bony lesions. Overlying soft tissues appear unremarkable. IMPRESSION: Moderate hiatal hernia. No acute pulmonary process. Dictated by: Cory Martinez M.D. on 01/04/2025 at 12:40 Approved by: Cory Martinez M.D. on 01/04/2025 at 12:40 ECG Data Attestation: I personally reviewed and interpreted this ECG as follows: Interpretation: Atrial fibrillation with rapid ventricular response rate of 137, no obvious ST segment elevation or depression changes. QRS 80, QTC 422. MDM Narrative Medical decision making narrative: History of atrial fibrillation prior ablation, previously on Xarelto that was discontinued, he has 4 days' duration of feeling like he is back in atrial fibrillation, started oral Xarelto 4 days ago from an old supply, presented to office of his PCP where he is found to be in AFib with rapid ventricular response rate 130s with low blood pressure, referred here. On triage here he is not hypotensive, has atrial fibrillation initially fast but then without specific treatment had reduction in ventricular rate to non tachycardic range. Screening studies chest x-ray lab evaluation unremarkable. PCP Dr. Mariee who saw him in clinic household had swung by the emergency department to visit with patient, relayed that the patient prefers to go see his [facility] senior communications engineer and might pursue transesophageal echocardiogram and conversion if negative, as he has apparently done in the past. No beta-padmini for now for discharge. Patient reiterated this discussion with me. Discharged home per patient request. He will follow up with his [facility] senior communications engineer. Return precautions discussed. Discharge Plan Departure Patient Disposition: Home Clinical Impression: Atrial fibrillation Instructions: DI for Atrial Fibrillation Activity Restrictions/Additional Instructions: History of atrial fibrillation with prior ablation, previously on anticoagulation that was discontinued, had restarted an old supply of Xarelto 4 days ago, today in the office of your regular provider noted to have lower blood pressure reading range, and fast heart rate response. Referred here to the emergency department. Without specific treatment your heart rate seemed to improve, blood pressure was actually not low here and did not need any specific treatment either. We did consider restart of your metoprolol which you had had in the distant past, the however this was held. Heart rate seemed to be improved. You preferred to see your [facility] senior communications engineer, as you have had transesophageal echoes in the past and have had cardioversion procedures. Your regular doctor in the department Dr. Mariee who discuss this with you. You preferred to go home, he felt that you were stable to go home with no further workup for now. Discharged home. Follow up with your own senior communications engineer in [facility] as planned above. Return earlier to this/nearest emergency department for any change worsening symptoms or any concerns prior. Prescriptions: No Action rosuvastatin 10 mg tablet 10 mg PO DAILY Qty: 90 3RF Xarelto 20 mg tablet 20 mg PO DAILY Qty: 90 3RF Referrals: Santino Mariee MD [Primary Care Provider] - Stand Alone Forms: Patient Portal/API/Survey
== END 2025-01-04 15:50 | disposition home or self-care (01) ==
PROVIDERS: Emergency Provider Emergency Medicine; PCP Internal Medicine
DX: I48.91 Unspecified atrial fibrillation (principal); Z79.01 Long term (current) use of anticoagulants
CPT/HCPCS: 36415; 71045; 80053; 82550; 83690; 83735; 83880; 84484; 85025; 85610; 85730; 93005; 99283; 99284

== ENCOUNTER → 2025-08-02 15:20 | Outpatient (CLI) | payer MEDICARE, SELFPAY ==
[2025-08-02 15:49] LABS: Hematocrit 37.6 % (41-53); Hemoglobin 13.3 g/dL (13.5-17.5); Mean Corpuscular HGB Conc 35.4 % (30-36); Mean Corpuscular Hemoglobin 34.2 PG (26-34); Mean Corpuscular Volume 96.5 fL (80-100); Platelet Count 188 X10^3/uL (150-400)
[2025-08-02 16:04] LABS: HEMOLYSIS < 15 (0-50); Iron 116 ug/dL (49-181)
[2025-08-02 16:05] LABS: Blood Urea Nitrogen 18 mg/dL (9-20); Calcium 9.5 mg/dL (8.4-10.2); Carbon Dioxide 24 mmol/L (22-32); Chloride 106 mmol/L (98-107); Cholesterol 126 mg/dL (140-199); Estimated Glomerular Filt Rate > 60 mL/min (>60); Glucose 87 mg/dL (70-99); HDL Cholesterol 77 mg/dL (40-60); HEMOLYSIS < 15 (0-50); Potassium 4.2 mmol/L (3.4-5.1); Sodium 137 mmol/L (137-145); Triglycerides 116 mg/dL (35-150)
[2025-08-02 16:15] LABS: Percent Iron Saturation 32 % (20-50); Total Iron Binding Capacity 364 ug/dL (261-462); Transferrin 311 mg/dL (206-381)
[2025-08-02 16:36] LABS: Prostate Specific Antigen 2.01 ng/mL (0.10-4.00)
[2025-08-02 16:40] LABS: Ferritin 22 ng/mL (18-464)
== END ==
PROVIDERS: PCP Internal Medicine; Referring Provider Internal Medicine; Visit Provider Internal Medicine
DX: D64.9 Anemia, unspecified (principal); E78.2 Mixed hyperlipidemia; N40.1 Benign prostatic hyperplasia with lower urinary tract symptoms; N13.8 Other obstructive and reflux uropathy; I48.0 Paroxysmal atrial fibrillation
CPT/HCPCS: 36415; 80048; 80061; 82728; 83540; 83550; 84153; 84450; 85027